=== PATIENT | female | born 1960 | race Two or more races ===

== ENCOUNTER 2017-11-25 07:39 | Outpatient (CLI) | payer OTHER | END 2017-11-25 07:44 | disposition home or self-care (01) | LOC: SONOGRAMA 07:39 | DX: E04.2 Nontoxic multinodular goiter (principal) ==

== ENCOUNTER 2020-11-30 08:55 | Outpatient (CLI) | payer OTHER | END 2020-11-30 11:01 | disposition home or self-care (01) | LOC: SONOGRAMA 08:55 | PROVIDERS: ATTEND Pathology Anatomic Pathology & Clinical Pathology | DX: E04.2 Nontoxic multinodular goiter (principal) ==

== ENCOUNTER 2021-09-07 06:33 | Day surgery (SDC) | payer OTHER ==
[~2021-09-07 06:33] MED LIST: BUPROPION HCL200 M1 PO; CILOSTAZOL100 MG PO; FOSAMAX70 MG PO; LEVO-T25 MCG PO; LIPOFEN50 MG PO; LOSARTAN-HCTZ1 EAC2 PO; PAXIL20 MG PO
[2021-09-07] MEDS ORDERED: COLACE100 MG PO (10:34)
[2021-09-07] MEDS ORDERED: ULTRACET PO (10:34)
== END 2021-09-07 15:55 | disposition home or self-care (01) ==
LOC: CIR.AMB 06:33
PROVIDERS: ATTEND Surgery
DX: K62.1 Rectal polyp (principal); K64.8 Other hemorrhoids